=== PATIENT | male | born 1960 | race Caucasian/White ===

== ENCOUNTER 2022-10-02 05:23 | Day surgery (SDC) | payer OTHER ==
[2022-10-01 09:55] VITALS: BMI 34.4
[2022-10-02] MEDS ORDERED: PROPOFOL 40 ML ONE (07:52)
[2022-10-02] MEDS ORDERED: SUCCINYLCHOLINE CHLORIDE 200 MG/10 ML SYRINGE ONE (07:52)
[2022-10-02] MEDS ORDERED: ceFAZolin SODIUM 1 GM VIAL IVPB ONE (08:26)
[2022-10-02] MEDS ORDERED: MIDAZOLAM HCL 2 MG/2 ML SINGLE DOSE VIAL ONE (08:28)
[2022-10-02] MEDS ORDERED: IOHEXOL 300 MG/ML INFUS..BTL IJ ONE (08:30)
[2022-10-02] MEDS ORDERED: ELECTROLYTE-148 SOLN 1,000 ML IV SCH (09:00)
[2022-10-02] MEDS ORDERED: oxyCODONE HCL 5 MG TABLET PO PRN (09:18)
[2022-10-02] MEDS ORDERED: ONDANSETRON 4 MG/2 ML VIAL IVPUSH PRN (09:18)
[2022-10-02] MEDS ORDERED: LACTATED RINGERS SOLUTION 1,000 ML IV SCH (09:30)
[2022-10-02 11:16] VITALS: RESP 20; TEMP 98.5
[2022-10-02 11:19] VITALS: BP 125/82; PULSE 62
== END 2022-10-02 10:55 | disposition home or self-care (01) ==
LOC: JASU-SURG 05:23
PROVIDERS: ATTEND Urology
PROC: BT1DYZZ Fluoroscopy of Right Kidney, Ureter and Bladder using Other Contrast (ICD-10-PCS; principal; 2022-10-02 08:00)
DX: N13.30 Unspecified hydronephrosis (principal)
CPT/HCPCS: 76000-TC-FY; 94760; C1747; C1769; C2617

== ENCOUNTER 2022-11-25 09:50 | Day surgery (SDC) | payer OTHER ==
[2022-11-20 16:07] VITALS: BMI 34.4
[2022-11-25] MEDS ORDERED: ONDANSETRON 4 MG/2 ML VIAL IVPUSH PRN (10:43)
[2022-11-25] MEDS ORDERED: oxyCODONE HCL 5 MG TABLET PO PRN ×2 (10:43)
[2022-11-25] MEDS ORDERED: LACTATED RINGERS SOLUTION 1,000 ML IV SCH (10:45)
[2022-11-25] MEDS ORDERED: PROPOFOL 20 ML ONE (10:51)
[2022-11-25] MEDS ORDERED: MIDAZOLAM HCL 2 MG/2 ML SINGLE DOSE VIAL ONE (10:51)
[2022-11-25] MEDS ORDERED: LIDOCAINE HCL/PF 2% SDV 5ML VIAL ONE (10:56)
[2022-11-25] MEDS ORDERED: KETOROLAC TROMETHAMINE 30 MG/1 ML VIAL ONE (10:56)
[2022-11-25] MEDS ORDERED: ceFAZolin SODIUM 1 GM VIAL IVPB ONE (11:00)
[2022-11-25] MEDS ORDERED: ceFAZolin SODIUM 1 GM VIAL ONE (11:02)
[2022-11-25] MEDS ORDERED: ELECTROLYTE-148 SOLN 1,000 ML IV SCH (11:30)
[2022-11-25 12:34] VITALS: RESP 18
[2022-11-25 13:52] VITALS: BP 118/78; PULSE 62; TEMP 98.6
== END 2022-11-25 13:00 | disposition home or self-care (01) ==
LOC: JASU-SURG 09:50
PROVIDERS: ATTEND Urology
PROC: BT1DZZZ Fluoroscopy of Right Kidney, Ureter and Bladder (ICD-10-PCS; 2022-11-25)
PROC: 0TP98DZ Removal of Intraluminal Device from Ureter, Via Natural or Artificial Opening Endoscopic (ICD-10-PCS; principal; 2022-11-25 11:45)
DX: N13.1 Hydronephrosis with ureteral stricture, not elsewhere classified (principal)
CPT/HCPCS: 88300-TC; 94760

== ENCOUNTER 2023-01-28 08:13 | Day surgery (SDC) | payer OTHER ==
[2023-01-26 10:31] VITALS: BMI 32.7
[2023-01-28] MEDS ORDERED: PROPOFOL 160 ML ONE (09:39)
[2023-01-28 10:13] VITALS: TEMP 97
[2023-01-28 10:33] VITALS: RESP 18
[2023-01-28 10:34] VITALS: BP 118/70; PULSE 73
== END 2023-01-28 10:55 | disposition home or self-care (01) ==
LOC: FASU-ENDO 08:13
PROVIDERS: ATTEND Internal Medicine Gastroenterology
PROC: 0DBN8ZX Excision of Sigmoid Colon, Via Natural or Artificial Opening Endoscopic, Diagnostic (ICD-10-PCS; 2023-01-28)
PROC: 0DBM8ZX Excision of Descending Colon, Via Natural or Artificial Opening Endoscopic, Diagnostic (ICD-10-PCS; principal; 2023-01-28 09:44)
DX: Z12.11 Encounter for screening for malignant neoplasm of colon (principal); D12.4 Benign neoplasm of descending colon; K63.5 Polyp of colon; K64.1 Second degree hemorrhoids; Z86.010 Personal history of colon polyps
CPT/HCPCS: 88305-TC; 88341-TC; 88342-TC